=== PATIENT | male | born 1940 | race Caucasian/White ===

== ENCOUNTER 2022-04-14 11:39 | Observation (INO) | payer OTHER ==
[~2022-04-14] VITALS: Ht 170.2 cm; Wt 75.8 kg
[~2022-04-14 11:39] MED LIST: ATOR10 PO; Coumadin5 MG PO; LISI5 PO; METO50ER PO; Verapamil ER100 MG PO
[2022-04-14 16:06] LABS: Hematocrit 43.1 % (37.0-53.0); Hemoglobin 14.2 g/dL (13.5-17.5)
[2022-04-14 16:19] LABS: International Normalized Ratio 3.5; Prothrombin Time Results 33.9 Sec (9.7-11.5)
[2022-04-14 16:27] LABS: Bun/Creatinine Ratio 32.4 (12.0-20.0); Calcium, Blood 8.7 mg/dL (8.5-10.1); Creatinine, Blood 0.9 mg/dL (0.60-1.20); Potassium, Blood 4.1 mmol/L (3.5-5.5)
--- NOTE | 2022-04-14 16:42 | NUR ---
RECEIVED VERBAL ORDER FROM DR MACHADO TO STOP AMIODARONE. DC'D AT 1640.
--- NOTE | 2022-04-14 16:44 | NUR ---
ALIVIA'D DILTIAZEM AT 1640.
--- NOTE | 2022-04-14 18:43 | NUR ---
SHIFT SUMMARY PT A&OX4, VSS/RA, JUSTA PO, VOIDING WELL/URINAL, PT REP NO BM X3DAYS MIRALAX GIVEN, SBA FOR TRANSFERS. -DR MACHADO CONSULTED AND STOPPED AMIO AND DILTIAZEM, STARTED PO METOPROLOL, ORDERED EKG AND ECHO. -DR VALLE CONSULTED, PLAN FOR NPO MIDNIGHT FOR POSS SURGERY TOMORROW R/T R AXILLA ABSCESS, CT COMPLETE. WILL REPORT TO ONCOMING NOC RN.
--- NOTE | 2022-04-14 20:24 | NUR ---
UPDATE SPOKE WITH VEGETABLE I FARMWORKER REGARDING HR. ORDERS FOR 100 MG OF METOPROLOL SUCCINATE NOW. WILL CONT TO MONITOR.
[2022-04-14] MEDS ORDERED: LISI5 (21:39)
[2022-04-14] MEDS ORDERED: WARF2.5 (21:43)
[2022-04-14] MEDS ORDERED: COLCHICINE0.6 MG PO (21:44)
[2022-04-14] MEDS ORDERED: VITAMIN D5000 UNIT PO (21:45)
--- NOTE | 2022-04-15 01:08 | NUR ---
UPDATE PT CONVERTED BACK TO NSR PRIOR TO SECOND DOSE OF PO METOPROLOL OF [address] MACHADO. PT'S HR IN NSR 70'S AT THIS TIME. DISCUSSED WITH DISPENSING OPTICIAN APPRENTICE, GAVE PT 50 MG OF METOPROLOL AT 2147 D/T CLINICAL JUDGMENT. RE-ASSESSED PT'S HR AND BP DURING MIDNIGHT VITALS. HR IN HIGH 50'S TO LOW 60'S, NSR. BP STABLE.HOLDING OTHER 50 MG OF PO METOPROLOL PER CLINICAL JUDGMENT. WILL INFORM DAYSHIFT. WILL CONT TO MONITOR.
--- NOTE | 2022-04-15 01:19 | NUR ---
UPDATE PHYSICIAN NOTIFIED OF PT'S HOME MED NOT ORDERED. ORDERS FOR COLCHICINE 0.6 MG DAILY. SEE EMAR.
--- NOTE | 2022-04-15 01:40 | NUR ---
UPDATE PT CONVERTED TO NSR/PACED 70'S PRIOR TO SECOND DOSE OF 100 MG OF PO METOPOLOL. DISCUSSED WITH GERMAN TEACHER. PT GIVEN 50 MG PO METOPOLOL D/T CJ. ONCE RE-ASSESSED PT DURING MIDNIGHT VITALS PT HR PACED 58-60. BP STABLE. WILL INFORM DAYSHIFT, WILL CONT TO MONITOR.
[2022-04-15 04:06] LABS: Hematocrit 43.9 % (37.0-53.0); Hemoglobin 14.4 g/dL (13.5-17.5); Mean Corpuscular HGB 30.6 pg (26.0-34.0); Mean Corpuscular HGB Conc 32.8 g/dL (31.5-36.5); Mean Corpuscular Volume 93 fL (80-100); Mean Platelet Volume 10.4 fL (9.1-12.4); Platelet Count 196 K/mm3 (150-400); RDW Coefficient Variation 16.1 % (11.7-14.2); RDW Standard Deviation 55.6 fL (35.1-46.3); Red Blood Cell Count 4.71 M/mm3 (4.30-5.90); White Blood Cell Count 10.04 K/mm3 (4.00-11.30)
[2022-04-15 04:20] LABS: International Normalized Ratio 3.35; Prothrombin Time Results 32.5 Sec (9.7-11.5)
[2022-04-15 04:32] LABS: Bun/Creatinine Ratio 26.5 (12.0-20.0); Calcium, Blood 8.9 mg/dL (8.5-10.1); Creatinine, Blood 1.02 mg/dL (0.60-1.20); Potassium, Blood 4.4 mmol/L (3.5-5.5); Thyroid Stimulating Hormone 4.55 uIU/mL (0.360-4.800); Thyroxine (T4) 6.5 ug/dL (4.5-12.1)
--- NOTE | 2022-04-15 06:27 | NUR ---
SHIFT SUMMARY PT ALERT AND ORIENTED X 4. HR AFIB BEGINNING OF SHIFT, CONVERTED TO NSR. SEE NOTES REGARDING HS METOPROLOL ORDER. HR CURRENTLY NSR AT 60. BP STABLE. NO CP OR PRESSURE. 12 LEAD EKG DONE AT 0500 PER CARDIOLOGY ORDER, EKG IN CHART. OXYGEN SATURATION MAINTAINED ABOVE 92% ON RA. PT ABLE TO TURN SELF IN BED. CALL LIGHT WITHIN REACH. PT NPO SINCE MIDNIGHT FOR POSSIBLE PROCEDURE IN AM. WILL CONT TO MONITOR UNTIL REPORT GIVEN TO DAYSHIFT RN.
[2022-04-15] MEDS ORDERED: METO100ER PO (10:54)
--- NOTE | 2022-04-15 14:13 | NUR ---
CARE NOTE DR. VALLE NOTIFIED THIS NURSE TO CLEAN ABCESS LOCATED ON RIGHT AXILLA AREA AND THEN APPLY EXU-DRY. PURULENT DRAINAGE NOTED, AREA CLEANED WITH WARM SOAP AND WATER THEN EXU-DRY APPLIED. AREA IS NOW DRY/CLEAN. WILL CONTINUE TO MONITOR.
--- NOTE | 2022-04-15 17:45 | NUR ---
DISCHARGE NOTE PT REMAINED ALERT AND ORIENTED X 4 AND VITAL SIGNS WERE STABLE, SPO2 MAINTAINED >95% VIA ROOM AIR. PT CONTINUED TO DENY CHEST PAIN/PRESSURE T/O SHIFT. DR. VALLE WAS AT BEDSIDE THIS AFTERNOON, SEE PREVIOUS NOTES. EXU-DRY BANDAGE IN RIGHT AXILLA AREA REMAINED IN PLACE AND WAS DRY/CLEAN/INTACT. PT SON WAS AT BEDSIDE DURING DISCHARGE INSTRUCTIONS. INSTRUCTIONS INCLUDED FOLLOW UP APPOINTMENTS WITH PCP, CARDIOLOGY, AND WOUND CARE REGARDING ABCESS IN RIGHT AXILLA. INSTRUCTIONS ALSO INCLUDED MEDICATIONS TO D/C, AND DOSE CHANGE FOR METOPROLOL, NEW DOSE ADJUSTMENT FAXED TO [facility]. PT EDUCATION REGARDING MEDICATIONS, AFIB, AND HEART HEALTHY DIET ALSO GIVEN. IV IN LEFT FOREARM AND POWERGLIDE IN [place] REMOVED WITH NO APPARENT SIGNS OF BLEEDING. PT LEFT PCU AT APPROX. 1645 VIA WHEELCHAIR AND WAS ESCORTED BY THIS NURSE AND PT SON. PT WAS STABLE UPON DISCHARGE.
== END 2022-04-15 16:48 | disposition home or self-care (01) ==
LOC: PCU 11:39
PROVIDERS: ADMIT Internal Medicine
DX: I48.0 Paroxysmal atrial fibrillation (principal); U07.1 COVID-19; L02.411 Cutaneous abscess of right axilla; I10 Essential (primary) hypertension; E78.5 Hyperlipidemia, unspecified; I25.10 Atherosclerotic heart disease of native coronary artery without angina pectoris; M19.90 Unspecified osteoarthritis, unspecified site; Z95.0 Presence of cardiac pacemaker; Z95.1 Presence of aortocoronary bypass graft; Z79.01 Long term (current) use of anticoagulants; Z96.642 Presence of left artificial hip joint; Z96.653 Presence of artificial knee joint, bilateral; Z95.3 Presence of xenogenic heart valve; Z87.891 Personal history of nicotine dependence
CPT/HCPCS: 73201; 80048; 84436; 84443; 84484; 85014; 85018; 85027; 85610; 93005; 93010; A9270; C1751; Q9967